=== PATIENT | female | born 1945 | race Caucasian/White ===

== ENCOUNTER → 2020-05-14 | Outpatient (CLI) | payer MEDICARE, OTHER | END | disposition home or self-care (01) | LOC: STAR 09:41 | PROVIDERS: ATTEND Anesthesiology | DX: Z01.812 Encounter for preprocedural laboratory examination (principal); Z20.828 Contact with and (suspected) exposure to other viral communicable diseases | CPT/HCPCS: 36415; 87635 ==

== ENCOUNTER 2020-05-18 05:39 | Day surgery (SDC) | payer MEDICARE, OTHER ==
[~2020-05-18] VITALS: Ht 165.1 cm; Wt 74.0 kg
[2020-05-18] MEDS ORDERED: CHLORHEXIDINE 15 ML UDC MM ONE ×2 (06:30→07:30)
[2020-05-18] MEDS ORDERED: LACTATED RINGERS 1,000 ML IV SCH (06:31)
[2020-05-18] MEDS ORDERED: FENTANYL PF 250 MCG/5ML ONE (06:46)
[2020-05-18 06:51] VITALS: BP 123/83
[2020-05-18] MEDS ORDERED: DEXAMETHASONE 4 MG/ML, 1ML ONE (06:52)
[2020-05-18] MEDS ORDERED: PHENYLEPHRINE 10 MG/ML ONE (06:52)
[2020-05-18] MEDS ORDERED: GLYCOPYRROLATE 0.2MG/1ML, 5ML ONE (06:52)
[2020-05-18] MEDS ORDERED: NEOSTIGMINE 1 MG/ML, 10ML ONE (06:52)
[2020-05-18] MEDS ORDERED: PROPOFOL 10 MG/ML, 20ML ONE (06:52)
[2020-05-18] MEDS ORDERED: ONDANSETRON 2MG/ML, 2ML ONE (06:52)
[2020-05-18] MEDS ORDERED: CEFAZOLIN 1,000 MG ONE (06:52)
[2020-05-18] MEDS ORDERED: LOVENOX (07:00)
[2020-05-18] MEDS ORDERED: FENTANYL PF 100 MCG/2ML IV PRN (07:00)
[2020-05-18] MEDS ORDERED: TRAMADOL (07:00)
[2020-05-18] MEDS ORDERED: PLEASE ENTER ALLERGIES MC SCH (07:00)
[2020-05-18] MEDS ORDERED: PRILOS (07:00)
[2020-05-18] MEDS ORDERED: HALOPERIDOL 5 MG/ML IV PRN (07:00)
[2020-05-18] MEDS ORDERED: LABETALOL 5MG/ML, 20ML IV PRN (07:00)
[2020-05-18] MEDS ORDERED: OXYcodone 5 MG/5 ML ORAL.SOL UDC PO PRN (07:00)
[2020-05-18] MEDS ORDERED: PROMETHAZINE 25 MG/ML, 1ML IVPush PRN (07:00)
[2020-05-18] MEDS ORDERED: morphine SULFATE 10 MG/ML, 1ML IVPush PRN (07:00)
[2020-05-18] MEDS ORDERED: SYNTHRO PO (07:00)
[2020-05-18] MEDS ORDERED: hydrALAzine 20 MG/ML, 1ML IV PRN (07:00)
[2020-05-18] MEDS ORDERED: MEPERIDINE/PF 25MG/0.5ML IVPush PRN (07:00)
[2020-05-18] MEDS ORDERED: HYDROmorphone 1 MG/ML, 1ML INJ IVPush PRN (07:00)
[2020-05-18] MEDS ORDERED: CHLORHEXIDINE 15 ML UDC ONE (07:06)
[2020-05-18] MEDS ORDERED: ETHYL ALCOHOL 98%, 5 ML ONE (07:23)
== END 2020-05-18 12:00 | disposition home or self-care (01) ==
LOC: OUT 05:39
PROVIDERS: ATTEND Internal Medicine Geriatric Medicine
DX: C25.0 Malignant neoplasm of head of pancreas (principal); C78.7 Secondary malignant neoplasm of liver and intrahepatic bile duct; C78.00 Secondary malignant neoplasm of unspecified lung; K83.1 Obstruction of bile duct; K31.5 Obstruction of duodenum; K25.9 Gastric ulcer, unspecified as acute or chronic, without hemorrhage or perforation; K21.9 Gastro-esophageal reflux disease without esophagitis; E03.9 Hypothyroidism, unspecified; Z79.890 Hormone replacement therapy; Z79.891 Long term (current) use of opiate analgesic; Z79.899 Other long term (current) drug therapy; Z86.718 Personal history of other venous thrombosis and embolism
CPT/HCPCS: 43242; 64680; 93005; J0690; J1100; J2370; J2405; J2704; J2710; J3010